=== PATIENT | female | born 2000 | race Caucasian/White ===

== ENCOUNTER 2021-03-15 10:39 | Emergency (ER) | payer BC ==
[~2021-03-15] VITALS: Ht 152.4 cm; Wt 49.4 kg
--- NOTE | 2021-03-15 11:08 | NUR ---
The patient bibs for c/o vaginal bleeding since last night, 1 pad. Rates abdominal cramping 4/10. Abdomen soft and non-distended. Will continue to monitor the patient.
[2021-03-15 11:56] LABS: BILIRUBIN,URINE Negative (NEGATIVE); COLOR,URINE YELLOW (YELLOW); LEUKOCYTE ESTERASE ,URINE Small (NEGATIVE); NITRITE, URINE Negative (NEGATIVE); PH,URINE 5.5 (5.0-8.0); PROTEIN,URINE Negative (NEGATIVE); UGLUCOSE Negative (NEGATIVE); UROBILINOGEN,URINE 0.2 EU/dL (0.2)
[2021-03-15 11:57] LABS: BACTERIA,URINE Few /HPF (None Seen); SQUAMOUS EPITHELIAL CELL,UR Few /HPF (None Seen)
[2021-03-15 12:39] VITALS: BP 117/88
--- NOTE | 2021-03-15 12:39 | NUR ---
Patient discharged to home in stable condition. Written and verbal after care instructions given. Patient verbalizes understanding of instruction but refused to sign discharge papers despite explaining risks and benefits.
== END 2021-03-15 12:40 | disposition home or self-care (01) ==
LOC: ER 11:25
DX: N93.9 Abnormal uterine and vaginal bleeding, unspecified (principal)
CPT/HCPCS: 81001; 84703-TC; 87086-TC

== ENCOUNTER 2022-03-04 05:00 | Emergency (ER) | payer BC, MEDICAID, OTHER ==
[~2022-03-04] VITALS: Ht 162.6 cm; Wt 43.1 kg
[2022-03-04 05:26] VITALS: BP 108/62
[2022-03-04] MEDS ORDERED: KETOROLAC TROMETHAMINE INJ 30 MG/ML VIAL IV ONE (05:30)
--- NOTE | 2022-03-04 05:32 | NUR ---
BIB FATHER FOR C/O MENSTRUAL CRAMP. LMP: YESTERDAY. PT A/OX4. RESP EVEN AND NON LABORED ON R/A; TOLERATING WELL. SAFETY MEASURES IN PLACE.
[2022-03-04] MEDS ORDERED: KETOROLAC TROMETHAMINE 15 MG/ML VIAL ONE (05:33)
--- NOTE | 2022-03-04 05:37 | NUR ---
PT UNABLE TO PROVIDE URINE SAMPLE AT THIS TIME
--- NOTE | 2022-03-04 06:24 | NUR ---
DR. LAW DOWLING AT PT'S BEDSIDE
[2022-03-04] MEDS ORDERED: IBUP-1957 PO (06:25)
[2022-03-04] MEDS ORDERED: ONDA4TAB11 PO (06:25)
--- NOTE | 2022-03-04 06:30 | NUR ---
Patient discharged to home in stable condition. Written and verbal after care instructions given. Patient verbalizes understanding of instruction. PT ambulatory with a steady gait
== END 2022-03-04 06:31 | disposition home or self-care (01) ==
LOC: ER 05:03
DX: N94.6 Dysmenorrhea, unspecified (principal); Z87.19 Personal history of other diseases of the digestive system; Z79.899 Other long term (current) drug therapy
CPT/HCPCS: 99283; 96372; J1885

== ENCOUNTER 2023-05-27 22:29 | Emergency (ER) | payer BC ==
[~2023-05-27] VITALS: Ht 162.6 cm; Wt 45.4 kg
[~2023-05-27 22:29] MED LIST: IBUP-1957 PO; ONDA4TAB11 PO
[2023-05-27 23:02] LABS: BASOPHILS % (AUTO) 0.4 % (0.0-2.0); EOSINOPHILS # (AUTO) 0.1 K/uL (0.0-0.7); EOSINOPHILS % (AUTO) 1.7 % (0.0-6.0); HEMATOCRIT 36 % (33-45); HEMOGLOBIN 11.9 g/dL (11.5-14.8); LYMPHOCYTES # (AUTO) 2.8 K/uL (0.8-4.8); LYMPHOCYTES % (AUTO) 37.6 % (20.0-44.0); MEAN CORPUSCULAR HEMOGLOBIN 31 PG (26.0-33.0); MEAN CORPUSCULAR HGB CONC 33 g/dl (31.0-36.0); MEAN CORPUSCULAR VOLUME 93 fL (82-100); MONOCYTES # (AUTO) 0.7 K/uL (0.1-1.30); MONOCYTES % (AUTO) 8.9 % (2.0-12.0); NEUTROPHILS # (AUTO) 3.8 K/uL (1.8-8.9); NEUTROPHILS % (AUTO) 51.4 % (43.0-81.0); PLATELET COUNT (AUTO) 204 K/uL (150-450); RED BLOOD CELL COUNT(AUTO) 3.87 MIL/uL (4.0-5.2); RED CELL DISTRIBUTION WIDTH 14.1 % (11.5-15.0); WHITE BLOOD COUNT (AUTO) 7.4 K/uL (4.3-11.0)
[2023-05-27 23:18] LABS: ALANINE AMINOTRANSFERASE 35 U/L (12-78); ALBUMIN 3.5 g/dL (3.4-5.0); ALKALINE PHOSPHATASE 49 U/L (46-116); ASPARTATE AMINOTRANSFERASE 17 U/L (15-37); BILIRUBIN,DIRECT 0.1 mg/dL (0.0-0.2); BILIRUBIN,TOTAL 0.2 mg/dL (0.2-1.0); CALCIUM, SERUM 8.8 mg/dL (8.5-10.1); CARBON DIOXIDE 26 mmol/L (21-32); CHLORIDE 107 mmol/L (98-107); CREATININE 0.7 mg/dL (0.6-1.3); GLUCOSE 111 mg/dL (74-106); POTASSIUM 3.7 mmol/L (3.5-5.1); SODIUM SERUM 139 mmol/L (136-145); TOTAL PROTEIN, SERUM 6.4 g/dL (6.4-8.2); UREA NITROGEN, BLOOD 6 mg/dL (7-18)
[2023-05-27 23:24] LABS: NT-PRO BNP 145 pg/mL (0-125); PREGNANCY TEST SERUM QUAN 0 mIU/mL (0-6)
[2023-05-28 00:22] VITALS: BP 84/59; TEMP 98; O2SAT 99
== END 2023-05-28 00:22 | disposition home or self-care (01) ==
LOC: ER 22:33
DX: R55 Syncope and collapse (principal); F41.9 Anxiety disorder, unspecified
CPT/HCPCS: 99285; 71045; 93005; 85025; 80048; 80076; 36415; 84484; 83880; 84702; J7030